=== PATIENT | female | born 1985 | race Caucasian/White ===

== ENCOUNTER → 2021-02-13 | Outpatient (CLI) | payer OTHER | LOC: COL.RAD 12:58 | DX: R39.14 Feeling of incomplete bladder emptying (principal); R33.8 Other retention of urine; N13.30 Unspecified hydronephrosis; Z87.440 Personal history of urinary (tract) infections ==

== ENCOUNTER → 2024-01-05 | Outpatient (CLI) | payer OTHER | LOC: MHCPAIN 11:17 | DX: M48.062 Spinal stenosis, lumbar region with neurogenic claudication (principal); M51.26 Other intervertebral disc displacement, lumbar region | CPT/HCPCS: G0463 ==

== ENCOUNTER → 2024-01-05 | Outpatient (CLI) | payer OTHER ==
[~2024-01-05] MED LIST: Iohexol 300 - 10 ML VIAL ONE; Lidocaine PF 2% (20 MG/ML) 2 ML VIAL ONE
== END ==
LOC: MHCPAIN 10:28
DX: M54.16 Radiculopathy, lumbar region (principal)
CPT/HCPCS: J1100; Q9967

== ENCOUNTER → 2024-03-03 | Outpatient (CLI) | payer OTHER | LOC: MHCPAIN 09:05 | DX: M51.26 Other intervertebral disc displacement, lumbar region (principal); M48.061 Spinal stenosis, lumbar region without neurogenic claudication | CPT/HCPCS: G0463 ==

== ENCOUNTER → 2024-03-04 | Outpatient (CLI) | payer OTHER | LOC: MHCPAIN 10:55 | DX: M47.817 Spondylosis without myelopathy or radiculopathy, lumbosacral region (principal); M54.50 Low back pain, unspecified ==

== ENCOUNTER → 2024-03-10 | Outpatient (CLI) | payer OTHER | LOC: MHCPAIN 13:09 | DX: M51.26 Other intervertebral disc displacement, lumbar region (principal); M48.061 Spinal stenosis, lumbar region without neurogenic claudication | CPT/HCPCS: G0463 ==

== ENCOUNTER → 2024-06-11 | Outpatient (CLI) | payer OTHER | LOC: MHCPAIN 09:17 | DX: M51.27 Other intervertebral disc displacement, lumbosacral region (principal); M48.061 Spinal stenosis, lumbar region without neurogenic claudication; M25.552 Pain in left hip | CPT/HCPCS: G0463 ==